=== PATIENT | male | born 1955 | race Caucasian/White ===

== ENCOUNTER 2020-11-24 13:47 | Emergency (ER) | payer OTHER ==
[~2020-11-24] VITALS: Ht 170.2 cm; Wt 86.6 kg
[2020-11-24 14:25] LABS: ABSOLUTE LYMPHOCYTES 1.7 thou/uL (0.8-5.3); ABSOLUTE MONOCYTES 0.7 thou/uL (0.0-1.2); BASOPHILS 0.8 %; EOSINOPHILS 0.1 %; HEMATOCRIT 44.8 % (42.0-52.0); HEMOGLOBIN 14.9 gm/dL (14.0-18.0); LYMPHOCYTES 30.2 %; MCH 27.1 pg (26.0-34.0); MCHC 33.3 g/dL (28.0-37.0); MCV 81.4 fL (80.0-100.0); MONOCYTES 13.7 %; MPV 7.1 fl. (7.2-11.1); NUCLEATED RBCS 0 /100WBC; PLATELET COUNT* 333 thou/uL (150-400); POLYS 55.2 %; RBC 5.51 mil/uL (4.50-6.00); RDW-CV 13.4 % (10.5-14.5); WBC 5.5 thou/uL (4.0-11.0)
[2020-11-24 14:34] LABS: CALCIUM 8.7 mg/dL (8.5-10.1); CREATININE 0.8 mg/dL (0.6-1.3); POTASSIUM 3.2 mmol/L (3.5-5.1)
[2020-11-24 14:45] LABS: ALBUMIN 3.3 g/dL (3.4-5.0); TOTAL BILIRUBIN 0.3 mg/dL (<0.1-1.0); TOTAL PROTEIN 7.8 g/dL (6.4-8.2)
[2020-11-24] MEDS ORDERED: ZOFRAN ODT4 MG PO (15:22)
[2020-11-24] MEDS ORDERED: VENTOLIN HFA 1818 GM INH (15:22)
[2020-11-24] MEDS ORDERED: ZPAK PO (15:22)
[2020-11-24 15:33] VITALS: BP 128/70
--- NOTE | 2020-11-25 13:10 | EKG ---
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 : 1955 Requested By: Celia Bah Order Number: [id number] MD: Vic Che Measurements Intervals [place] Rate: 88 P: -57 TX: 222 QRS: 33 QRSD: 90 T: 27 QT: 352 QTc: 426 Interpretive Statements Sinus or ectopic atrial rhythm Prolonged [place] interval low voltage Abnormal R-wave progression, early transition No previous ECG available for comparison Electronically Signed On 11-25-2020 13:10:24 MAKEUP EDITOR by Vic Che [email or web address] <ELECTRONICALLY SIGNED> By: Vic Che MD, FAC 11/25/20 1310 1449 1449 Vic Che MD, [facility] /EPI
== END 2020-11-24 15:41 | disposition home or self-care (01) ==
LOC: M.ERS 13:47
PROVIDERS: Nurse Practitioner Family
DX: U07.1 COVID-19 (principal)

== ENCOUNTER → 2020-12-12 | Outpatient (CLI) | payer OTHER ==
[~2020-12-12] MED LIST: VENTOLIN HFA 1818 GM INH; ZOFRAN ODT4 MG PO; ZPAK PO
== END ==
LOC: M.CT 07:55
PROVIDERS: ATTEND Family Medicine
DX: I25.10 Atherosclerotic heart disease of native coronary artery without angina pectoris (principal); U07.1 COVID-19; J18.9 Pneumonia, unspecified organism